=== PATIENT | male | born 1940 | race Hispanic/Latino ===

== ENCOUNTER 2017-04-07 16:17 | Emergency (ER) | payer MEDICARE, OTHER ==
[~2017-04-07] VITALS: Ht 162.6 cm; Wt 70.3 kg
--- OUTSIDE RECORDS SUMMARY | ~2017-04-07 | XMS | Clinical Summary ---
Demographics + + + | Address | [address] | | | [place] [address] | + + + | Home Phone | | + + + | Preferred Language | Unknown | + + + | Marital Status | | + + + | Rastafari Affiliation | CAT | + + + | Race | Unknown | + + + | Ethnic Group | Other Race | + + + Author + + + | Author | [facility] | + + + | Organization | [facility] | + + + | Address | Unknown | + + + | Phone | Unavailable | + + + Support +------+ + + + +-------+ | Name | Relationship | Address | Phone | +------+ + + + +-------+ ECON | [address] | | [place] | [address] | +------+ + + + +-------+ Care Team Providers + +------+ + | Care Machine Pack Assembler Name | Role | Phone | + +------+ + PP | Unavailable | + +------+ + Source Comments [facility]KKI is fully live on both [facility] Allergies No Known Allergies Current Medications No known medications Active Problems + + + | Problem | Noted Date | + + + | Subarachnoid hemorrhage (HCC) | 02/27/2009 | + + + | Subdural hematoma (HCC) | 02/27/2009 | + + + | Hyperglycemia | 02/27/2009 | + + + Immunizations + + + + | Name | Dates Previously Given | Next Due | + + + + | Influenza, split | 02/27/2009 | | + + + + Social History + +-------+ +--------+------+ | Tobacco Use | Types | Packs/Day | Years | Date | | | | | Used | | + +-------+ +--------+------+ | Never Smoker | | | | | + +-------+ +--------+------+ + + +---------+ + | Alcohol Use | Drinks/We | oz/Week | Comments | | | ek | | | + + +---------+ + | No | | | | + + +---------+ + + + + | Sex Assigned at | Date Recorded | | | | + + + | Not on file | | + + + Last Filed Vital Signs + + + + | Vital Sign | Reading | Time Taken | + + + + | Blood Pressure | 118/68 | 03/01/2009 5:46 AM PST | + + + + | Pulse | 68 | 03/01/2009 5:46 AM PST | + + + + | Temperature | 37.1 C (98.8 F) | 03/01/2009 5:46 AM PST | + + + + | Respiratory Rate | 16 | 03/01/2009 5:46 AM PST | + + + + | Oxygen Saturation | 96% | 03/01/2009 5:46 AM PST | + + + + | Inhaled Oxygen | - | - | | Concentration | | | + + + + | Weight | 80.4 kg (177 lb 4 | 02/26/2009 10:00 PM PST | | | oz) | | + + + + | Height | - | - | + + + + | Body Mass Index | - | - | + + + + Plan of Treatment + + + + + | Health Maintenance | Due Date | Last Done | Comments | + + + + + | INFLUENZA VACCINE | | 02/27/2009 | | | (FLU SHOT) | 7 | | | + + + + + Results Not on filefrom Last 3 Months"
[~2017-04-07 16:17] MED LIST: ACID REDUCER20 MG PO; AFINITOR5 MG PO; ALDACTONE25 MG PO; ALPHAGAN P5 ML OPTH; AMITRIPTYLINE H25 MG PO; AMLODIPINE BESYL5 MG PO; CYPROHEPTADINE H4 MG PO; FUROSEMIDE20 MG PO; LENVIMA18 MG PO; LISINOPRIL10 MG PO; MELOXICAM7.5 MG PO; METFORMIN HCL1000 MG PO; OMEPRAZOLE20 MG PO; OXYCODONE HCL5 MG PO; PERCOCET 10-321 EACH PO; TIMOPTIC 0.25%1 EACH OPTH; TOPROL XL50 MG PO; ZOFRAN ODT4 MG PO
[2017-04-07] MEDS ORDERED: LORAZEPAM1 MG PO (17:00)
[2017-04-07] MEDS ORDERED: COLACE100 MG PO (17:10)
[2017-04-07] MEDS ORDERED: CYCLOBENZAPRINE10 MG PO (17:10)
[2017-08-11] MEDS ORDERED: GABAPENTIN100 MG PO (13:56)
== END 2017-04-07 17:39 | disposition home or self-care (01) ==
LOC: ED 16:17
DX: G89.3 Neoplasm related pain (acute) (chronic) (principal); M54.9 Dorsalgia, unspecified; C64.9 Malignant neoplasm of unspecified kidney, except renal pelvis; I10 Essential (primary) hypertension; E11.9 Type 2 diabetes mellitus without complications; Z90.5 Acquired absence of kidney; Z79.84 Long term (current) use of oral hypoglycemic drugs; Z79.899 Other long term (current) drug therapy
CPT/HCPCS: 96372; 99283; J1885; J2270

== ENCOUNTER 2017-08-08 20:47 | Emergency (ER) | payer MEDICARE, OTHER ==
[~2017-08-08] VITALS: Ht 162.6 cm; Wt 71.2 kg
[~2017-08-08 20:47] MED LIST changes: +COLACE100 MG PO; +CYCLOBENZAPRINE10 MG PO; +LORAZEPAM1 MG PO
[2017-08-11] MEDS ORDERED: GABAPENTIN100 MG PO (13:56)
== END 2017-08-09 02:12 | disposition home or self-care (01) ==
LOC: ED 20:47
PROC: BT40ZZZ Ultrasonography of Bladder (ICD-10-PCS; principal; 2017-08-08)
DX: K59.00 Constipation, unspecified (principal); C64.9 Malignant neoplasm of unspecified kidney, except renal pelvis; C79.9 Secondary malignant neoplasm of unspecified site; I10 Essential (primary) hypertension; E11.9 Type 2 diabetes mellitus without complications; Z79.84 Long term (current) use of oral hypoglycemic drugs; Z79.899 Other long term (current) drug therapy
CPT/HCPCS: 51798; 74022; 81001; 99284